=== PATIENT | female | born 2000 | race Caucasian/White ===

== ENCOUNTER 2022-05-05 11:30 | Outpatient (CLI) | payer MEDICAID, SELFPAY ==
[2022-05-06 14:59] LABS: Hepatitis B Surface Antigen* Negative (Negative)
[2022-05-06 15:16] LABS: Hepatitis C Virus Antibody* Negative (Negative)
[2022-05-06 15:46] LABS: HIV 1/2/P24 Combo Screen* Negative (Negative)
[2022-05-07 18:04] LABS: Rapid Plasma Reagin (RPR) Non Reactive (Non Reactive)
== END 2022-05-05 11:31 | disposition home or self-care (01) ==
PROVIDERS: Visit Provider Physician Assistant
DX: Z11.3 Encounter for screening for infections with a predominantly sexual mode of transmission (principal)
CPT/HCPCS: 86592; 86703; 86803; 87340; 87491; 87591